=== PATIENT | female | born 1950 | race Caucasian/White ===

== ENCOUNTER → 2017-06-16 | Outpatient (CLI) | payer BC ==
[~2017-06-16] MED LIST: 'PARAFON FORTE500 M1 PO; ASPIR 8181 MG PO; ASPIRIN EC325 MG PO; ASPIRIN81 M1 PO; ATIVAN0.5 MG PO; BENTYL20 MG PO; CLOPIDOGREL75 MG PO; ELAVIL10 MG PO; ELAVIL25 MG PO; HYDROCODONE BIT1 T11 PO; IMDUR ER30 MG PO; IMDUR SA30 MG PO; IMDUR30 MG PO; ISOSORBIDE DINI20 MG PO; KEFLEX500 M1 PO; LISINOPRIL AND1 TAB PO; LISINOPRIL/HCTZ1 TA3 PO; LOMOTIL; LOMOTIL 0.025 M1 TA1 PO; LOPRESSOR25 MG; MICRO K; NITROGLYCERIN0.4 MG SL; PANTOPRAZOLE SO40 MG PO; PLAVIX75 M1 PO; POTASSIUM CHLOR8 ME1 PO; PROTONIX IV40 MG IV; RANEXA500 M1 PO; RANEXA500 MG PO; SIMVASTATIN40 MG PO; TOPROL XL25 MG PO; ZANTAC 150150 MG PO; ZOCOR40 MG PO; [UNRECOGNIZED DRUG - CODE]; [UNRECOGNIZED DRUG - OTHER]
--- NOTE | ~2017-06-16 | ST ---
[place], [place] EXERCISE STRESS TEST REPORT NAME: PABLO CHOWDARY UNIT #: [id number] ROOM: DOCTOR: VIMAL MOORE MD BIRTHDATE: [birth year] DOS: 06/16/2017 Lexiscan portion of the Lexiscan Cardiolite. Baseline cardiogram is sinus with nonspecific ST-T changes, 0.4 mg of Lexiscan, duration of 10 seconds. With Lexiscan, no new EKG changes. No chest pain. Blood pressure and heart rate response was normal. FINAL IMPRESSION: No EKG changes. No chest pain, no dysrhythmia. Blood pressure and heart rate response was normal. Nuclear images will be reported separately. VIMAL MOORE MD CM:STRESS:EXERCISE STRESS TEST REPORT [id number] VIMAL MOORE MD
== END | disposition home or self-care (01) ==
LOC: CARD 02:10
DX: R07.89 Other chest pain (principal); R53.81 Other malaise

== ENCOUNTER → 2018-07-28 | Outpatient (CLI) | payer MEDICARE ==
--- NOTE | ~2018-07-28 | PF ---
[place], [place] PULMONARY FUNCTION TEST NAME: PABLO CHOWDARY UNIT #: [id number] ROOM: DOCTOR: PARMJIT BURGOS MD,SHEA BIRTHDATE: [birth year] DOS: 07/28/2018 PROCEDURE: Spirometry bronchodilator. ORDERED BY: Dr. Sushila Graham. HISTORY: The patient is recorded as a 57-year-old female, height of 62 inches, weight of 185 pounds, for assessment of symptoms of shortness of breath and productive cough. The patient has also reported rare wheezing. There is no past tobacco use. SPIROMETRY: FVC is 1.97 liters, 70% predicted value. FEV1 is 1.80 liters, 82% predicted value. Ratio of FEV1/FVC is recorded at 91%. Post-bronchodilator, no significant changes occurred. Flow volume I suggestive of mild obstructive airway pattern. FINAL IMPRESSION: Current spirometry was noted with nonspecific mild reduction of forced volume capacity, otherwise normal testing. SHEA PARNELL MD CM:PFREPORT:PULMONARY FUNCTION TEST [id number] SHEA BURGOS MD
== END | disposition home or self-care (01) ==
LOC: CP 04:08
DX: R06.02 Shortness of breath (principal)

== ENCOUNTER → 2019-03-04 | Outpatient (CLI) | payer MEDICARE ==
[~2019-03-04] MED LIST changes: +LASIX20 MG PO; +LOMOTIL 2.5-0.1 EACH PO
[2019-03-04 10:28] LABS: BUN 15 mg/dl (7-24); CHLORIDE 109 mmol/L (98-107); CREATININE 1.01 mg/dL (0.55-1.02); POTASSIUM 4.2 mmol/L (3.5-5.1); SODIUM 142 mmol/L (136-145)
== END | disposition home or self-care (01) ==
LOC: LAB 09:29
PROVIDERS: Family Medicine
DX: I25.10 Atherosclerotic heart disease of native coronary artery without angina pectoris (principal); F32.9 Major depressive disorder, single episode, unspecified; R25.2 Cramp and spasm

== ENCOUNTER → 2019-06-22 | Outpatient (CLI) | payer MEDICARE ==
[2019-06-22 09:12] LABS: BASO % 0.9 % (0.0-1.0); EOS # 0.1 10*3/uL (0.0-0.4); EOS % 2.9 % (1.0-4.0); HEMATOCRIT 41.1 % (37.0-47.0); HEMOGLOBIN 13.4 g/dl (12.0-16.0); LYMPH # 1.5 10*3/uL (1.3-4.4); LYMPH % 34.3 % (27.0-41.0); MEAN CELL VOLUME 93.4 fl (81.0-99.0); MEAN CORPUSCULAR HGB 30.5 pg (27.0-31.0); MEAN CORPUSCULAR HGB CONC 32.6 g/dl (33.0-37.0); MEAN PLATELET VOLUME 8.7 fl (9.6-12.3); MONO # 0.3 10*3/uL (0.1-1.0); MONO % 6.5 % (3.0-9.0); NEUT # 2.5 10*3/uL (2.3-7.9); NEUT % 55.2 % (47.0-73.0); PLATELET COUNT AUTOMATED 323 10*3/uL (130-400); RED CELL DISTRI WIDTH 12.2 % (0-14.5); WHITE BLOOD COUNT 4.5 10*3/uL (4.8-10.8)
[2019-06-22 09:27] LABS: ALBUMIN 3.4 gm/dl (3.1-4.5); ALKALINE PHOSPHATASE 78 U/L (45-117); BILIRUBIN, DIRECT 0.1 mg/dL (0.0-0.2); BUN 12 mg/dl (7-24); CHLORIDE 106 mmol/L (98-107); CHOLESTEROL 198 mg/dL (<200); CREATININE 0.88 mg/dL (0.55-1.02); HDL CHOLESTEROL 63 mg/dl (40-60); LDL CHOLESTEROL 113 mg/dL (9-159); POTASSIUM 4.4 mmol/L (3.5-5.1); SGOT/AST 14 IU/L (3-35); SGPT/ALT 18 U/L (12-78); SODIUM 140 mmol/L (136-145); TOTAL PROTEIN 7.1 gm/dL (6.4-8.2); TRIGLYCERIDES 111 mg/dl (<150); VLDL CHOLESTEROL 22 mg/dL (6-40)
== END | disposition home or self-care (01) ==
LOC: LAB 08:37
PROVIDERS: Family Medicine
DX: I25.10 Atherosclerotic heart disease of native coronary artery without angina pectoris (principal); R79.89 Other specified abnormal findings of blood chemistry; R53.83 Other fatigue; E53.8 Deficiency of other specified B group vitamins

== ENCOUNTER → 2020-12-31 | Outpatient (CLI) | payer MEDICARE | END | disposition home or self-care (01) | LOC: RAD 11:51 | PROVIDERS: ATTEND Surgery Plastic and Reconstructive Surgery | DX: M25.78 Osteophyte, vertebrae (principal); M54.12 Radiculopathy, cervical region; D17.1 Benign lipomatous neoplasm of skin and subcutaneous tissue of trunk ==

== ENCOUNTER → 2021-05-14 | Outpatient (CLI) | payer MEDICARE | END | disposition home or self-care (01) | LOC: US 15:30 | PROVIDERS: ATTEND Physician Assistant Medical | DX: R22.9 Localized swelling, mass and lump, unspecified (principal) ==

== ENCOUNTER 2021-12-26 15:09 | Emergency (ER) | payer OTHER, MEDICARE ==
[~2021-12-26] VITALS: Ht 157.4 cm; Wt 83.0 kg
[2021-12-26 15:21] VITALS: BP 141/60
== END 2021-12-26 18:06 | disposition home or self-care (01) ==
LOC: ED 15:09
DX: S09.90XA Unspecified injury of head, initial encounter (principal); M54.50 Low back pain, unspecified; R11.0 Nausea; Z88.8 Allergy status to other drugs, medicaments and biological substances; Z79.899 Other long term (current) drug therapy; Z79.82 Long term (current) use of aspirin; Z87.442 Personal history of urinary calculi; Z90.710 Acquired absence of both cervix and uterus; Z98.890 Other specified postprocedural states; W01.0XXA Fall on same level from slipping, tripping and stumbling without subsequent striking against object, initial encounter; Y93.89 Activity, other specified; Y92.89 Other specified places as the place of occurrence of the external cause; Y99.8 Other external cause status

== ENCOUNTER → 2022-09-13 | Outpatient (CLI) | payer OTHER, MEDICARE ==
[2022-09-13 10:05] LABS: ALKALINE PHOSPHATASE 82 U/L (45-117); BUN 15 mg/dl (7-24); CHLORIDE 108 mmol/L (98-107); CHOLESTEROL 213 mg/dL (<200); CREATININE 0.85 mg/dL (0.55-1.02); LDL CHOLESTEROL 126 mg/dL (9-159); POTASSIUM 4.2 mmol/L (3.5-5.1); SGOT/AST 11 IU/L (3-35); SGPT/ALT 18 U/L (12-78); SODIUM 144 mmol/L (136-145); TOTAL PROTEIN 7.3 gm/dL (6.4-8.2); TRIGLYCERIDES 65 mg/dl (<150)
== END | disposition home or self-care (01) ==
LOC: LAB 09:25
PROVIDERS: ATTEND Family Medicine
DX: Z13.6 Encounter for screening for cardiovascular disorders (principal); I10 Essential (primary) hypertension

== ENCOUNTER → 2023-04-01 | Outpatient (CLI) | payer OTHER, MEDICARE | END | disposition home or self-care (01) | LOC: US 14:27 | PROVIDERS: ATTEND Physician Assistant Medical | DX: M79.605 Pain in left leg (principal); R60.0 Localized edema ==

== ENCOUNTER → 2023-04-04 | Outpatient (CLI) | payer OTHER, MEDICARE ==
[2023-04-04 09:43] LABS: URINE CREATININE RANDOM 84.23 mg/dL
[2023-04-04 09:57] LABS: ALKALINE PHOSPHATASE 73 U/L (46-116); BUN 12 mg/dl (9-23); CHLORIDE 105 mmol/L (98-107); CHOLESTEROL 195 mg/dL (<200); LDL CHOLESTEROL 117 mg/dL (9-159); POTASSIUM 4.3 mmol/L (3.4-5.1); SGPT/ALT 12 U/L (10-49); TOTAL PROTEIN 6.8 gm/dL (6.0-8.0); TRIGLYCERIDES 78 mg/dl (<150)
== END | disposition home or self-care (01) ==
LOC: LAB 09:06
PROVIDERS: ATTEND Physician Assistant Medical
DX: I10 Essential (primary) hypertension (principal); I25.10 Atherosclerotic heart disease of native coronary artery without angina pectoris

== ENCOUNTER → 2023-06-09 | Outpatient (CLI) | payer OTHER, MEDICARE ==
[~2023-06-09] MED LIST changes: +DICYCLOMINE HYD10 MG PO; +NORVASC2.5 MG PO; +PROVENTIL HFA6.7 GM INH; +[UNRECOGNIZED DRUG - OTHER] PO
== END | disposition home or self-care (01) ==
LOC: CARD 00:19
PROVIDERS: ATTEND Internal Medicine Cardiovascular Disease
DX: R07.89 Other chest pain (principal)

== ENCOUNTER → 2024-01-25 | Outpatient (CLI) | payer OTHER, MEDICARE ==
[2024-01-25 17:01] LABS: BASO % 0.7 % (0.0-1.0); EOS # 0.1 10*3/uL (0.0-0.4); EOS % 1.8 % (1.0-4.0); HEMATOCRIT 39.7 % (37.0-47.0); LYMPH % 32.5 % (27.0-41.0); MEAN CELL VOLUME 90.6 fl (81.0-99.0); MEAN CORPUSCULAR HGB 28.1 pg (27.0-31.0); MEAN PLATELET VOLUME 8.1 fl (9.6-12.3); MONO # 0.3 10*3/uL (0.1-1.0); MONO % 5.5 % (3.0-9.0); NEUT # 3.6 10*3/uL (2.3-7.9); NEUT % 59.5 % (47.0-73.0); PLATELET COUNT AUTOMATED 425 10*3/uL (130-400); RED BLOOD COUNT 4.38 10*6/uL (4.10-5.10); RED CELL DISTRI WIDTH 13.1 % (0-14.5)
[2024-01-25 17:28] LABS: ALKALINE PHOSPHATASE 80 U/L (46-116); BUN 18 mg/dl (9-23); CHLORIDE 102 mmol/L (98-107); POTASSIUM 4.2 mmol/L (3.4-5.1); SGPT/ALT 11 U/L (5-49)
== END | disposition home or self-care (01) ==
LOC: LAB 16:35
PROVIDERS: ATTEND Urology
DX: Z01.818 Encounter for other preprocedural examination (principal)

== ENCOUNTER → 2024-02-03 | Outpatient (CLI) | payer OTHER, MEDICARE | END | disposition home or self-care (01) | LOC: RAD 11:50 | PROVIDERS: ATTEND Urology | DX: N20.0 Calculus of kidney (principal) ==

== ENCOUNTER → 2024-03-01 | Outpatient (CLI) | payer OTHER, MEDICARE | END | disposition home or self-care (01) | LOC: CT 01:39 | PROVIDERS: ATTEND Urology | DX: N20.0 Calculus of kidney (principal); Z98.890 Other specified postprocedural states; K57.30 Diverticulosis of large intestine without perforation or abscess without bleeding; N13.30 Unspecified hydronephrosis ==

== ENCOUNTER → 2024-03-09 | Outpatient (CLI) | payer OTHER, MEDICARE | END | disposition home or self-care (01) | LOC: RAD 09:56 | PROVIDERS: ATTEND Urology | DX: N20.0 Calculus of kidney (principal); Z98.890 Other specified postprocedural states ==